=== PATIENT | male | born 1965 | race Caucasian/White ===

== ENCOUNTER 2022-10-03 12:31 | Emergency (ER) | payer BC ==
[~2022-10-03] VITALS: Ht 188 cm; Wt 106.6 kg
[2022-10-03 13:22] LABS: BASOPHILS ABSOLUTE AUTO 0.04 K/mm3 (0.00-0.23); BASOPHILS PERCENT AUTO 0 % (0-2); EOSINOPHILS ABSOLUTE AUTO 0.13 K/mm3 (0.00-0.68); EOSINOPHILS PERCENT AUTO 1 % (0-6); Hematocrit 41.4 % (37.0-53.0); Hemoglobin 13.7 g/dL (13.5-17.5); IMMATURE GRAN ABSOLUTE AUTO 0.07 K/mm3 (0.00-0.10); IMMATURE GRAN PERCENT AUTO 1 % (0-1); LYMPHOCYTES ABSOLUTE AUTO 1.97 K/mm3 (0.84-5.20); LYMPHOCYTES PERCENT AUTO 22 % (21-46); MONOCYTES ABSOLUTE AUTO 0.69 K/mm3 (0.16-1.47); MONOCYTES PERCENT AUTO 8 % (4-13); Mean Corpuscular HGB 26.9 pg (26.0-34.0); Mean Corpuscular HGB Conc 33.1 g/dL (31.5-36.5); Mean Corpuscular Volume 81 fL (80-100); Mean Platelet Volume 8.2 fL (9.1-12.4); NEUTROPHILS ABSOLUTE AUTO 6.26 K/mm3 (1.96-9.15); NEUTROPHILS PERCENT AUTO 68 % (41-73); Platelet Count 332 K/mm3 (150-400); RDW Coefficient Variation 14.3 % (11.7-14.2); RDW Standard Deviation 42.3 fL (35.1-46.3); Red Blood Cell Count 5.09 M/mm3 (4.30-5.90); White Blood Cell Count 9.16 K/mm3 (4.00-11.30)
[2022-10-03 13:49] LABS: Albumin, Blood 3.5 g/dL (3.4-5.0); Albumin/Globulin Ratio 0.7 (0.8-1.8); Bilirubin, Total 0.3 mg/dL (0.1-1.0); Bun/Creatinine Ratio 34.3 (12.0-20.0); Calcium, Blood 10.4 mg/dL (8.5-10.1); Creatinine, Blood 1.05 mg/dL (0.60-1.20); Globulin, Blood 4.9 g/dL (2.2-4.0); Potassium, Blood 3.9 mmol/L (3.5-5.5); Total Protein, Blood 8.4 g/dL (6.4-8.2)
[2022-10-03 15:34] VITALS: BP 143/98
== END 2022-10-03 16:11 | disposition home or self-care (01) ==
LOC: ER 12:31
PROVIDERS: Emergency Medicine
DX: N13.9 Obstructive and reflux uropathy, unspecified (principal)
CPT/HCPCS: 74177; 80053; 85025; 99284-25; Q9967

== ENCOUNTER 2023-12-13 13:28 | Emergency (ER) | payer BC ==
[~2023-12-13] VITALS: Ht 188 cm; Wt 108.9 kg
[2023-12-13 13:42] VITALS: BP 166/88
[2023-12-13] MEDS ORDERED: Diphth,Pertuss(Acell),Tet Vac 0.5 ML VIAL IM ONE (13:45)
[2023-12-13] MEDS ORDERED: Cephalexin Monohydrate 500 MG Cap PO ONE (14:45)
[2023-12-13] MEDS ORDERED: CEPH500 PO (14:48)
[2023-12-14] MEDS ORDERED: FOLI1 (12:21)
[2023-12-14] MEDS ORDERED: METHOTREXATE2.510 (12:21)
[2023-12-14] MEDS ORDERED: HYDCHL25 PO (12:59)
[2023-12-14] MEDS ORDERED: Prinivil10 MG PO (12:59)
== END 2023-12-13 15:23 | disposition home or self-care (01) ==
LOC: ER 13:28
DX: S61.012A Laceration without foreign body of left thumb without damage to nail, initial encounter (principal); M06.9 Rheumatoid arthritis, unspecified; W29.8XXA Contact with other powered hand tools and household machinery, initial encounter
CPT/HCPCS: 73140; 90471; 90715; 99283-25; A9270

== ENCOUNTER 2023-12-14 11:32 | Emergency (ER) | payer BC ==
[~2023-12-14] VITALS: Ht 188 cm; Wt 79.4 kg
[~2023-12-14 11:32] MED LIST: CEPH500 PO
[2023-12-14 11:46] VITALS: BP 161/107
[2023-12-14] MEDS ORDERED: METHOTREXATE2.510 (12:21)
[2023-12-14] MEDS ORDERED: FOLI1 (12:21)
[2023-12-14] MEDS ORDERED: HYDCHL25 PO (12:59)
[2023-12-14] MEDS ORDERED: Prinivil10 MG PO (12:59)
== END 2023-12-14 16:49 | disposition home or self-care (01) ==
LOC: ER 11:32
DX: S61.112D Laceration without foreign body of left thumb with damage to nail, subsequent encounter (principal); M06.9 Rheumatoid arthritis, unspecified; W29.8XXD Contact with other powered hand tools and household machinery, subsequent encounter; Z79.899 Other long term (current) drug therapy
CPT/HCPCS: 64450; 73140; 99283-25

== ENCOUNTER 2024-03-26 05:39 | Day surgery (SDC) | payer BC ==
[~2024-03-26] VITALS: Ht 186 cm; Wt 111.3 kg
[2024-03-26] VITALS (16 sets, daily range): BP systolic 151–169; BP diastolic 86–105
[~2024-03-26 05:39] MED LIST changes: +CENTRUM SILVER1 EAC2 PO; +FOLI1; +HYDCHL25 PO; +MAGCHL64ER; +MELATONIN5 M1 PO; +METHOTREXATE2.510; +Prinivil10 MG PO
[2024-03-26] MEDS ORDERED: Lactated Ringer's 1,000 ML IV SCH (06:35)
[2024-03-26] MEDS ORDERED: CeFAZolin Sodium 2,000 MG in NS 100 ML IV SCH (06:35)
[2024-03-26] MEDS ORDERED: Bupivacaine 0.5% HCl 5 MG/ML 30MLVIAL ONE (07:08)
[2024-03-26 07:18] LABS: Hematocrit 45.6 % (37.0-53.0); Hemoglobin 15.6 g/dL (13.5-17.5); Mean Corpuscular HGB 30.8 pg (26.0-34.0); Mean Corpuscular HGB Conc 34.2 g/dL (31.5-36.5); Mean Corpuscular Volume 90 fL (80-100); Mean Platelet Volume 8.7 fL (9.1-12.4); Platelet Count 173 K/mm3 (150-400); RDW Coefficient Variation 13.8 % (11.7-14.2); RDW Standard Deviation 44.8 fL (35.1-46.3); Red Blood Cell Count 5.07 M/mm3 (4.30-5.90)
[2024-03-26] MEDS ORDERED: Scopolamine Hydrobromide Patch TOP ONE (07:20)
[2024-03-26] MEDS ORDERED: propofoL 40 ML IV ONE (07:35)
[2024-03-26] MEDS ORDERED: FentaNYL Citrate 50 MCG/ML 2 ML Injection ONE ×2 (07:35→11:01)
[2024-03-26] MEDS ORDERED: Midazolam HCl 1MG / ML 2ML Vial ONE (07:35)
[2024-03-26 07:41] LABS: Bun/Creatinine Ratio 14.9 (12.0-20.0); Calcium, Blood 9.4 mg/dL (8.5-10.1); Creatinine, Blood 1.21 mg/dL (0.60-1.20); Potassium, Blood 3.7 mmol/L (3.5-5.5)
[2024-03-26] MEDS ORDERED: Rocuronium Bromide 10 MG/ML 5ML Injection IV ONE ×2 (07:47→07:48)
[2024-03-26] MEDS ORDERED: Ondansetron HCl 2 MG / ML 2ML Vial ONE (07:48)
[2024-03-26] MEDS ORDERED: Dexamethasone Sod Phos 10 MG/ML 1ML VIAL ONE (07:48)
[2024-03-26] MEDS ORDERED: ePHEDrine Sulfate 50 MG/ML 1ML Injection ONE (08:22)
[2024-03-26] MEDS ORDERED: HYDROmorphone HCl/Pf 1MG SYR ONE (09:07)
[2024-03-26] MEDS ORDERED: Sugammadex Sodium 200 MG/2ML SDV (100 MG/ML) ONE ×2 (10:12→10:27)
[2024-03-26] MEDS ORDERED: OxyCODONE 5 mg/Acetamin 325 mg TABLET PO PRN (10:45)
--- NOTE | 2024-03-26 12:55 | NUR ---
Patient up to [facility] independently. Gait steady. Discharge instructions reviewed with patient. Patient verbalizes understanding. Copy given to patient to take home. Discharged via wheelchair to private car for ride home.
== END 2024-03-26 12:55 | disposition home or self-care (01) ==
LOC: ORSCMMR 05:39 → ORD 07:30 → ORSCMMR 12:55
PROVIDERS: Surgery
PROC: 0WUF4JZ Supplement Abdominal Wall with Synthetic Substitute, Percutaneous Endoscopic Approach (ICD-10-PCS; principal; 2024-03-26 07:30)
PROC: 3E0T3BZ Introduction of Anesthetic Agent into Peripheral Nerves and Plexi, Percutaneous Approach (ICD-10-PCS; principal; 2024-03-26 07:30)
PROC: 0WQF0ZZ Repair Abdominal Wall, Open Approach (ICD-10-PCS; principal; 2024-03-26 07:30)
PROC: 8E0W0CZ Robotic Assisted Procedure of Trunk Region, Open Approach (ICD-10-PCS; principal; 2024-03-26 07:30)
PROC: 8E0W4CZ Robotic Assisted Procedure of Trunk Region, Percutaneous Endoscopic Approach (ICD-10-PCS; principal; 2024-03-26 07:30)
DX: K42.0 Umbilical hernia with obstruction, without gangrene (principal); M62.08 Separation of muscle (nontraumatic), other site; K66.0 Peritoneal adhesions (postprocedural) (postinfection); I10 Essential (primary) hypertension; G47.33 Obstructive sleep apnea (adult) (pediatric); Z79.899 Other long term (current) drug therapy; E66.9 Obesity, unspecified; Z68.33 Body mass index [BMI] 33.0-33.9, adult
CPT/HCPCS: 80048; 85027; 93005; 93010; A9270; C1781; J0690; J1100; J1170; J1171; J2250; J2405; J2704; J3010; J7120